=== PATIENT | female | born 1990 | race Caucasian/White ===

== ENCOUNTER 2023-11-24 12:59 | Emergency (ER) | payer BC ==
[~2023-11-24] VITALS: Ht 165.1 cm; Wt 67.1 kg
[2023-11-24] MEDS: ondansetron 4mg rapidly disintigrating tab PO ONE (13:18)
[2023-11-24 13:42] LABS: URINE HCG NEGATIVE (NEG)
[2023-11-24 13:45] LABS: BILIRUBIN,URINE SMALL (Neg); GLUCOSE, URINE NEGATIVE (Neg); KETONES,URINE NEGATIVE (Neg); LEUKOCYTE ESTERASE ,URINE NEGATIVE (Neg); NITRITES, URINE NEGATIVE (Neg); OCCULT BLOOD,URINE MODERATE (Neg); PH,URINE 6.5 (4.8-8.0); PROTEIN,URINE 100 mg/dl (Neg)
[2023-11-24 13:55] LABS: UA COLLECTION TYPE CLN CATCH MIDSTREAM
[2023-11-24 13:57] LABS: CLARITY,URINE SLIGHTLY CLOUDY (Clear); COLOR,URINE DARK YELLOW (Yellow)
[2023-11-24 14:04] LABS: AMORPHOUS URATES 2+; BACTERIA,URINE 1+ /HPF (Neg); SQUAMOUS EPITHELIAL CELL,UR MODERATE /LPF (FEW)
[2023-11-24 14:05] LABS: MUCUS STRANDS FEW /LPF (Neg)
[2023-11-24] MEDS: proCHLORperazine 10 MG/2 ml inj IV ONE (15:50)
[2023-11-24] MEDS: diphenhydrAMINE 50 mg/ml inj IV ONE ×3 (15:51→19:39)
[2023-11-24 16:09] LABS: BASOPHILS % (AUTO) 0.1 % (0-1); EOSINOPHILS % (AUTO) 0 % (0-6); HEMATOCRIT 41.7 % (35.0-45.0); HEMOGLOBIN 14.6 g/dl (12.0-16.0); LYMPHOCYTES # (AUTO) 0.9 X10'3 (1.1-4.8); LYMPHOCYTES % (AUTO) 7.1 % (21-51); MEAN CORPUSCULAR VOLUME 85.6 FL (78-98); MEAN PLATELET VOLUME 8.7 FL (7.4-10.4); MONOCYTES # (AUTO) 0.7 X10'3 (0-0.9); MONOCYTES % (AUTO) 5.9 % (2-12); NEUTROPHILS % (AUTO) 86.9 % (42-75); PLATELET COUNT 312 X10'3 (140-440); RED BLOOD COUNT 4.87 X10'6 (4.20-5.60); RED CELL DISTRIBUTION WIDTH 11.7 % (11.5-14.5); WHITE BLOOD COUNT 12.7 X10'3 (4.5-11.0)
[2023-11-24 16:24] LABS: ALANINE AMINOTRANSFERASE 30 U/L (12-78); ALBUMIN 4.8 G/DL (3.4-5.0); ALBUMIN/GLOBULIN RATIO 1.5 (1.1-1.5); ALKALINE PHOSPHATASE 62 IU/L (46-116); ANION GAP 19 (8-16); ASPARTATE AMINO TRANSFERASE 21 U/L (10-37); BILIRUBIN,TOTAL 1.2 MG/DL (0.1-1.0); BLOOD UREA NITROGEN 19 MG/DL (7-18); BUN/CREATININE RATIO 22.6 (10.0-20.0); CALCIUM 9.7 MG/DL (8.5-10.1); CHLORIDE 99 MMOL/L (99-107); CREATININE 0.84 MG/DL (0.40-0.90); GLUCOSE 119 MG/DL (70-104); LIPASE 17 U/L (16-77); SODIUM 139 MMOL/L (135-145); TOTAL CARBON DIOXIDE 21.5 MMOL/L (24-32); eCRCL 87 ML/MIN; eGFR 79 ML/MIN
[2023-11-24 16:29] LABS: POTASSIUM 2.9 MMOL/L (3.5-5.1)
[2023-11-24] MEDS: ringers solution, lacted 1,000 ML IV ONE (16:45)
[2023-11-24] MEDS ORDERED: potassium Cl 40MEQ/1/2NS 520ml 520 ML IV ONE (17:00)
[2023-11-24] MEDS: potassium Cl 20 mEq SR tablet PO ONE (18:04)
[2023-11-24] MEDS: potassium CL 10mEq/100ml bag 100 ML IV SCH (18:07)
[2023-11-24] MEDS: haloperidol lactate 5mg/ml inj IM ONE (18:08)
[2023-11-24] MEDS ORDERED: PROC25SU31 RC (18:36)
[2023-11-24] MEDS ORDERED: CEPH-585 PO (18:36)
[2023-11-24] MEDS ORDERED: ONDA4TAB12 PO (18:36)
[2023-11-24 19:30] VITALS: BP 103/63; PULSE 62; RESP 12; O2SAT 100
[2023-11-24] MEDS: LORazepam 2 mg/ml vial IV ONE (19:39)
[2023-11-24] MEDS: ondansetron/PF 4mg/2ml inj IV ONE (19:39)
[2023-11-24] MEDS: metoclopramide 5 mg/ml inj IV ONE (20:12)
[2023-11-24] MEDS: proCHLORperazine 10 MG/2 ml inj IV PRN (20:12)
[2023-11-24 20:14] VITALS: TEMP 98.1
== END 2023-11-24 20:16 | disposition home or self-care (01) ==
LOC: ER 13:00
DX: R11.2 Nausea with vomiting, unspecified (principal); E87.6 Hypokalemia; R10.10 Upper abdominal pain, unspecified; Z88.0 Allergy status to penicillin; Z79.2 Long term (current) use of antibiotics; Z79.899 Other long term (current) drug therapy
CPT/HCPCS: 36415; 76700; 80053; 81001; 81025; 83690; 85025; 87088; 93005; 96361; 96365; 96366; 96375; 96376; 99285; J0780; J1200; J2060; J2405; J2765; J3480; J7120